=== PATIENT | female | born 1965 | race Caucasian/White ===

== ENCOUNTER → 2017-08-13 | Outpatient (CLI) | payer BC | LOC: MC.RAD 09:36 | DX: Z12.31 Encounter for screening mammogram for malignant neoplasm of breast (principal) ==

== ENCOUNTER 2018-01-19 04:52 | Emergency (ER) | payer BC ==
[~2018-01-19] VITALS: Ht 165.1 cm; Wt 43.6 kg
[2018-01-19 04:56] VITALS: TEMP 98.5
[2018-01-19] MEDS ORDERED: XALATAN EYE DROPS OU (04:59)
[2018-01-19] MEDS ORDERED: AMOXICILLIN 8751 TAB PO (06:27)
[2018-01-19] MEDS ORDERED: PREDNISONE20 MG PO (06:28)
[2018-01-19 06:43] VITALS: BP 136/64; PULSE 103
== END 2018-01-19 06:44 | disposition home or self-care (01) ==
LOC: COL.ER 04:52
DX: J32.9 Chronic sinusitis, unspecified (principal); J40 Bronchitis, not specified as acute or chronic
CPT/HCPCS: J7512

== ENCOUNTER → 2019-08-27 | Outpatient (CLI) | payer BC ==
[~2019-08-27] MED LIST: AMOXICILLIN 8751 TAB PO; PREDNISONE20 MG PO; XALATAN EYE DROPS OU
== END ==
LOC: MC.RAD 14:32
DX: Z12.31 Encounter for screening mammogram for malignant neoplasm of breast (principal)